=== PATIENT | male | born 1930 | race Caucasian/White ===

== ENCOUNTER 2016-04-05 | Outpatient (CLI) | payer MEDICARE | END 2016-04-05 19:48 | disposition critical access hospital (66) | DX: R07.9 Chest pain, unspecified (principal) | CPT/HCPCS: A0425; A0429 ==

== ENCOUNTER 2016-04-05 20:17 | Emergency (ER) | payer MEDICARE | END 2016-04-05 23:04 | disposition home or self-care (01) | DX: R00.2 Palpitations (principal); I49.3 Ventricular premature depolarization; I45.2 Bifascicular block; R94.31 Abnormal electrocardiogram [ECG] [EKG]; Z87.891 Personal history of nicotine dependence ==

== ENCOUNTER 2016-04-19 15:34 | Outpatient (CLI) | payer MEDICARE | END 2016-04-19 15:35 | disposition home or self-care (01) | DX: E03.9 Hypothyroidism, unspecified (principal) ==

== ENCOUNTER 2016-10-02 08:00 | Outpatient (CLI) | payer MEDICARE ==
[2016-10-02 19:22] LABS: PARTIAL THROMBOPLASTIN TIME 29.7 secs (24.9-33.3); PT - PROTHROMBIN TIME 11.6 secs (9.9-12.6)
[2016-10-02 19:37] LABS: BASOPHILS % (AUTO) 0.6 %; EOSINOPHILS # (AUTO) 0.1 10^3/uL (0.0-0.7); EOSINOPHILS % (AUTO) 2.1 %; HCT - HEMATOCRIT 42.7 % (42.0-52.0); HGB - HEMOGLOBIN 14.2 g/dL (14.0-18.0); LYMPHOCYTES # (AUTO) 2.5 10^3/uL (1.5-3.5); LYMPHOCYTES % (AUTO) 37.3 %; MEAN CORPUSCULAR HEMOGLOBIN 31.9 pg (27.0-31.0); MEAN CORPUSCULAR HGB CONC 33.3 g/dL (32.0-36.0); MEAN CORPUSCULAR VOLUME 95.9 fL (80.0-94.0); MEAN PLATELET VOLUME 9.2 fL (7.4-11.4); MONOCYTES # (AUTO) 0.5 10^3/uL (0.0-1.0); MONOCYTES % (AUTO) 7.3 %; NEUTROPHILS # (AUTO) 3.6 10^3/uL (1.5-6.6); NEUTROPHILS % (AUTO) 52.7 %; RED BLOOD COUNT 4.45 10^6/uL (4.70-6.10); UNCORRECTED WHITE BLOOD COUNT 6.8 x10^3/uL; WHITE BLOOD COUNT 6.8 x10^3/uL (4.8-10.8)
[2016-10-02 19:52] LABS: ALBUMIN/GLOBULIN RATIO 1.4 (1.0-2.2); BILIRUBIN,TOTAL 0.5 mg/dL (0.2-1.0); TOTAL PROTEIN 6.8 g/dL (6.7-8.2)
== END 2016-10-02 08:01 | disposition home or self-care (01) ==
LOC: LAB.F 08:00
PROVIDERS: ATTEND Internal Medicine
DX: R27.0 Ataxia, unspecified (principal); R04.0 Epistaxis; H53.2 Diplopia; R26.89 Other abnormalities of gait and mobility
CPT/HCPCS: 36415; 80053; 85025; 85610; 85730

== ENCOUNTER 2016-10-10 13:25 | Outpatient (CLI) | payer MEDICARE ==
--- NOTE | 2016-10-10 19:50 | MRI Report ---
MRI BRAIN WITHOUT CONTRAST INDICATION: 86-year-old male with vertigo and ataxia. Please assess. TECHNIQUE: 1. T1 sagittal and fat-saturated T2 coronal. 2. Axial T1 3-D MPRAGE, FLAIR, T2, T2* and DWI. COMPARISON: None. FINDINGS: There is generalized cerebral and cerebellar volume loss with associated ex vacuo ventriculomegaly. T he degree of volume loss is considered well within normal limits for stated age. Of note, compared to the cerebrum, the cerebellar volume loss appears relatively preserved. A mild amount of white matter disease is identified in the supratentorial brain, manifested as small T2 hyperintensities that are scattered throughout the paratracheal, deep and subcortical white matter bilaterally. A frontoparietal distribution predominates. Signal intensity of cortex and white matter is otherwise unremarkable. No brainstem or cerebellar lesion is demonstrated. Flow-voids are demonstrated in the main intracranial arteries. No abnormal diffusion restriction is d emonstrated. No evidence of acute or chronic hemorrhage on T2*GRE sequence. No abnormal extra-axial fluid collection. No mass effect or midline shift. Limited assessment of the orbits reveals no gross pathology. Changes of previous ocular lens extracti on are noted bilaterally. Mucous retention cysts are identified in the right maxillary sinus. Mucosal thickening is seen scatte red throughout the paranasal sinuses. There is opacification of at least 1 (left-sided) ethmoid air c ell. No obvious ethmoid air-fluid level is demonstrated. No mastoid or middle ear effusion is identif ied. IMPRESSION: 1. Age-appropriate senescent change (please see above). 2. A very mild amount of white matter disease is identified in the supratentorial brain. The findings are relatively nonspecific; however, this most likely represents chronic microangiopathy. 3. No other significant intracranial findings on this unenhanced brain MRI. In particular, no evidenc e of infarction, hemorrhage, space-occupying mass lesion or other acute intracranial abnormality. Referring Provider Line: [phone] SITE ID: [id number]
== END 2016-10-10 13:26 | disposition home or self-care (01) ==
LOC: DI 13:25
PROVIDERS: ATTEND Internal Medicine
DX: R27.0 Ataxia, unspecified (principal); R90.82 White matter disease, unspecified
CPT/HCPCS: 70551

== ENCOUNTER 2017-04-20 14:39 | Outpatient (CLI) | payer MEDICARE | END 2017-04-20 14:40 | disposition home or self-care (01) | LOC: LAB.F 14:39 | PROVIDERS: ATTEND Family Medicine | DX: E03.9 Hypothyroidism, unspecified (principal) | CPT/HCPCS: 36415; 84443 ==

== ENCOUNTER 2017-08-23 13:51 | Outpatient (CLI) | payer MEDICARE ==
[2017-08-23 17:37] LABS: BILIRUBIN,URINE NEGATIVE (NEGATIVE); GLUCOSE, URINE (UA) NEGATIVE (NEGATIVE); KETONES,URINE (UA) NEGATIVE (NEGATIVE); LEUKOCYTE ESTERASE, URINE NEGATIVE (NEGATIVE); NITRITE,URINE NEGATIVE (NEGATIVE); OCCULT BLOOD,URINE NEGATIVE (NEGATIVE); PROTEIN,URINE TRACE mg/dL (NEGATIVE); UROBILINOGEN,URINE 0.2 (NORMAL) E.U./dL (NORMAL)
[2017-08-23 17:54] LABS: CLARITY,URINE CLEAR (CLEAR)
[2017-08-23 17:55] LABS: BACTERIA,URINE None Seen /HPF (None Seen); MUCUS,URINE Few Strands; RBC,URINE None Seen /HPF (0-5); SQUAMOUS EPITHELIAL CELL,UR MANY Squamous (<= Few)
[2017-08-23 18:03] LABS: ALBUMIN 3.5 g/dL (3.2-5.5); ALBUMIN/GLOBULIN RATIO 1.1 (1.0-2.2); BILIRUBIN,TOTAL 0.8 mg/dL (0.2-1.0); CALCIUM 8.9 mg/dL (8.5-10.3); CREATININE 1.1 mg/dL (0.6-1.2); TOTAL PROTEIN 6.6 g/dL (6.7-8.2); URIC ACID 4.2 mg/dL (2.6-7.2)
== END 2017-08-23 13:52 | disposition home or self-care (01) ==
LOC: LAB.F 13:51
PROVIDERS: ATTEND Family Medicine
DX: I10 Essential (primary) hypertension (principal); E03.9 Hypothyroidism, unspecified; N20.0 Calculus of kidney
CPT/HCPCS: 36415; 80053; 81001; 84443; 84550

== ENCOUNTER 2017-10-25 10:45 | Outpatient (CLI) | payer MEDICARE ==
[2017-10-25 17:32] LABS: CALCIUM 9.1 mg/dL (8.5-10.3); CREATININE 1.2 mg/dL (0.6-1.2); MAGNESIUM 2.3 mg/dL (1.7-2.8)
== END 2017-10-25 10:46 | disposition home or self-care (01) ==
LOC: LAB.F 10:45
PROVIDERS: ATTEND Family Medicine
DX: I10 Essential (primary) hypertension (principal)
CPT/HCPCS: 36415; 80048; 83735

== ENCOUNTER 2017-12-04 14:30 | Outpatient (CLI) | payer MEDICARE | END 2017-12-04 14:31 | disposition home or self-care (01) | LOC: RT.S 14:30 | PROVIDERS: ATTEND Nurse Practitioner Family | DX: R00.2 Palpitations (principal) | CPT/HCPCS: 93005 ==

== ENCOUNTER 2018-01-12 19:54 | Outpatient (CLI) | payer MEDICARE | END 2018-01-12 19:55 | disposition EMS.NT | LOC: EMS 19:54 | PROVIDERS: ATTEND Surgery | DX: R00.2 Palpitations (principal) ==

== ENCOUNTER 2018-01-18 15:05 | Outpatient (CLI) | payer MEDICARE ==
[2018-01-18 17:46] LABS: BASOPHILS % (AUTO) 0.5 %; EOSINOPHILS # (AUTO) 0.2 10^3/uL (0.0-0.7); EOSINOPHILS % (AUTO) 2.3 %; HGB - HEMOGLOBIN 15.3 g/dL (14.0-18.0); LYMPHOCYTES # (AUTO) 2.5 10^3/uL (1.5-3.5); LYMPHOCYTES % (AUTO) 29.5 %; MEAN CORPUSCULAR HEMOGLOBIN 31.7 pg (27.0-31.0); MEAN CORPUSCULAR HGB CONC 33.4 g/dL (32.0-36.0); MEAN CORPUSCULAR VOLUME 94.9 fL (80.0-94.0); MEAN PLATELET VOLUME 9.2 fL (7.4-11.4); MONOCYTES # (AUTO) 0.7 10^3/uL (0.0-1.0); MONOCYTES % (AUTO) 8.1 %; NEUTROPHILS % (AUTO) 59.6 %; PLT - PLATELET COUNT 196 10^3/uL (130-450); RED BLOOD COUNT 4.82 10^6/uL (4.70-6.10); RED CELL DISTRIBUTION WIDTH 14.6 % (12.0-15.0); WHITE BLOOD COUNT 8.4 x10^3/uL (4.8-10.8)
== END 2018-01-18 15:06 | disposition home or self-care (01) ==
LOC: LAB.F 15:05
PROVIDERS: ATTEND Nurse Practitioner Family
DX: R00.2 Palpitations (principal)
CPT/HCPCS: 36415; 84443; 85025